=== PATIENT | male | born 1980 | race Caucasian/White ===

== ENCOUNTER 2019-06-20 03:48 | Emergency (ER) | payer BC ==
[~2019-06-20] VITALS: Ht 172.7 cm
[2019-06-20 04:29] LABS: ABSOLUTE EOSINOPHILS 0.1 thou/uL (0.0-0.7); ABSOLUTE LYMPHOCYTES 1.5 thou/uL (0.8-5.3); ABSOLUTE MONOCYTES 0.3 thou/uL (0.0-1.2); ABSOLUTE NEUTROPHILS 3.2 thou/uL (1.6-8.1); BASOPHILS 0.4 %; EOSINOPHILS 1.4 %; HEMATOCRIT 42.7 % (42.0-52.0); HEMOGLOBIN 15.2 gm/dL (14.0-18.0); LYMPHOCYTES 29.7 %; MCH 32.5 pg (26.0-34.0); MCHC 35.7 g/dL (28.0-37.0); MCV 91.1 fL (80.0-100.0); MONOCYTES 6.3 %; NUCLEATED RBCS 0 /100WBC; PLATELET COUNT* 159 thou/uL (150-400); POLYS 62.2 %; RBC 4.69 mil/uL (4.50-6.00); RDW-CV 13.3 % (10.5-14.5); WBC 5.1 thou/uL (4.0-11.0)
[2019-06-20 04:39] LABS: CALCIUM 7.9 mg/dL (8.5-10.1); CREATININE 1.1 mg/dL (0.6-1.3); POTASSIUM 3.9 mmol/L (3.5-5.1)
[2019-06-20 04:40] LABS: PROTIME 10.5 Seconds (9.20-11.50)
[2019-06-20 04:50] LABS: ALBUMIN 3.5 g/dL (3.4-5.0); TOTAL BILIRUBIN 0.4 mg/dL (<0.1-1.0)
[2019-06-20 06:24] LABS: URINE BILIRUBIN NEGATIVE (Negative); URINE BLOOD 3+ (Negative); URINE CLARITY CLEAR; URINE COLOR YELLOW; URINE GLUCOSE-RANDOM NEGATIVE (Negative); URINE KETONES NEGATIVE (Negative); URINE LEUKOCYTES-REFLEX NEGATIVE (Negative); URINE NITRITE-REFLEX NEGATIVE (Negative); URINE PROTEIN 1+ (Negative); URINE SPECIFIC GRAVITY 1.025 (1.005-1.030); URINE UROBILINOGEN 0.2 E.U./dl (0.2-1.0)
[2019-06-20 06:36] LABS: BACTERIA-REFLEX 1-9 Few /HPF (None Seen); CASTS None Seen /LPF (None Seen); CRYSTALS None Seen /LPF (None Seen); MUCUS 0-3 Light strn/LPF (None Seen); SQUAMOUS 0-3 Few /LPF (0-3); URINE WBC-REFLEX 0-5 Rare /HPF (0-5)
[2019-06-20 07:49] VITALS: BP 138/88
--- NOTE | 2019-06-22 13:56 | EKG ---
[place] [address] ELECTROCARDIOGRAM REPORT Name: KEVIN LIAO Room: [facility]#: [id number] Admission: 06/20/19 Attend Phys: Discharge: 06/20/19 Date of : 78 Date of Service: 06/20/19 0353 Report #: [id number] THIS REPORT FOR: cc: KAELA - No family physician/PCP FAM - No family physician/PCP Hakan Tim MD [facility] ~ THIS REPORT FOR: //name// [facility] ED Test Date: 2019-06-20 Test Time: 03:53:28 Pat Name: KEVIN LIAO Department: Room: Gender: M Physician Relations Representative: : 1980 Requested By: Sarah Espinal Order Number: [id number] Juventino MD: Hakan Tim Measurements Intervals [place] Rate: 82 P: 34 ND: 154 QRS: -4 QRSD: 103 T: 15 QT: 361 QTc: 422 Interpretive Statements Sinus rhythm Abnormal R-wave progression, early transition Baseline wander in lead(s) V6 No previous ECG available for comparison Electronically Signed On 06-20-2019 16:10:36 INSULATION MANAGER by Hakan Tim [email or web address] <ELECTRONICALLY SIGNED> By: Hakan Tim MD, FAC 06/20/19 1610 2 2 Hakan Tim MD, [facility] /EPI
--- NOTE | 2019-06-22 13:56 | EKG ---
[place] [address] ELECTROCARDIOGRAM REPORT Name: KEVIN LIAO Room: [facility]#: [id number] Admission: 06/20/19 Attend Phys: Discharge: 06/20/19 Date of : 78 Date of Service: 06/20/19 0640 Report #: [id number] THIS REPORT FOR: cc: FAM - No family physician/PCP FAM - No family physician/PCP Hakan Tim MD [facility] ~ THIS REPORT FOR: //name// [facility] ED Test Date: 2019-06-20 Test Time: 06:40:57 Pat Name: KEVIN LIAO Department: Room: Gender: M General Cargo Clerk: MARION : 1980 Requested By: Sarah Espinal Order Number: [id number] MD: Hakan Tim Measurements Intervals [place] Rate: 68 P: -1 UT: 151 QRS: 14 QRSD: 101 T: 6 QT: 375 QTc: 399 Interpretive Statements Sinus rhythm Abnormal R-wave progression, early transition No previous ECG available for comparison Electronically Signed On 06-20-2019 16:10:53 INFORMATION SYSTEMS AUDIT MANAGER by Hakan Tim [email or web address] <ELECTRONICALLY SIGNED> By: Hakan Tim MD, FACC 06/20/19 1610 9 9 Hakan Tim MD, FAC /EPI
== END 2019-06-20 07:50 | disposition still patient (30) ==
LOC: M.ERS 03:48
PROVIDERS: Emergency Medicine
DX: R07.89 Other chest pain (principal); R20.2 Paresthesia of skin

== ENCOUNTER 2020-08-11 10:56 | Emergency (ER) | payer OTHER ==
[~2020-08-11] VITALS: Ht 175.3 cm; Wt 114.9 kg
[2020-08-11 11:16] LABS: URINE BILIRUBIN NEGATIVE (Negative); URINE BLOOD 3+ (Negative); URINE CLARITY CLEAR; URINE COLOR YELLOW; URINE GLUCOSE-RANDOM NEGATIVE (Negative); URINE KETONES NEGATIVE (Negative); URINE LEUKOCYTES-REFLEX NEGATIVE (Negative); URINE NITRITE-REFLEX NEGATIVE (Negative); URINE PROTEIN 2+ (Negative); URINE SPECIFIC GRAVITY >= 1.030 (1.005-1.030); URINE UROBILINOGEN 0.2 E.U./dl (0.2-1.0)
[2020-08-11 11:24] LABS: URINE RBC >20 Many /HPF (0-2)
[2020-08-11 11:25] LABS: HEMATOCRIT 46.2 % (42.0-52.0); MCH 31.7 pg (26.0-34.0); MCHC 34.6 g/dL (28.0-37.0); MCV 91.7 fL (80.0-100.0); MPV 7.7 fl. (7.2-11.1); RBC 5.04 mil/uL (4.50-6.00); RDW-CV 13.7 % (10.5-14.5); WBC 5.6 thou/uL (4.0-11.0)
[2020-08-11 11:29] LABS: BACTERIA-REFLEX None Seen /HPF (None Seen)
[2020-08-11 11:30] LABS: CASTS None Seen /LPF (None Seen); SQUAMOUS 0-3 Few /LPF (0-3)
[2020-08-11 11:32] LABS: MUCUS 4-6 Moderate strn/LPF (None Seen)
[2020-08-11 11:35] LABS: CREATININE 1.3 mg/dL (0.6-1.3); POTASSIUM 4.3 mmol/L (3.5-5.1)
[2020-08-11 11:36] LABS: CRYSTALS None Seen /LPF (None Seen)
[2020-08-11 11:39] LABS: ALBUMIN 3.8 g/dL (3.4-5.0); TOTAL BILIRUBIN 0.8 mg/dL (<0.1-1.0); TOTAL PROTEIN 7.8 g/dL (6.4-8.2)
[2020-08-11] MEDS ORDERED: IBUPROFEN 800800 M1 PO (14:20)
[2020-08-11] MEDS ORDERED: HYDROCODON-ACE1 EAC7 PO (14:20)
[2020-08-11 14:34] VITALS: BP 124/87
== END 2020-08-11 14:36 | disposition home or self-care (01) ==
LOC: M.ERS 10:56
PROVIDERS: Emergency Medicine Emergency Medical Services
DX: N23 Unspecified renal colic (principal)

== ENCOUNTER 2020-09-07 15:49 | Emergency (ER) | payer OTHER ==
[~2020-09-07] VITALS: Ht 175.3 cm; Wt 113.8 kg
[~2020-09-07 15:49] MED LIST: HYDROCODON-ACE1 EAC7 PO; IBUPROFEN 800800 M1 PO
[2020-09-07] MEDS ORDERED: HYDROCODON-ACE1 EAC7 PO (17:15)
[2020-09-07 17:24] VITALS: BP 146/96
== END 2020-09-07 17:38 | disposition home or self-care (01) ==
LOC: M.ERS 15:49
DX: S50.01XA Contusion of right elbow, initial encounter (principal); W23.0XXA Caught, crushed, jammed, or pinched between moving objects, initial encounter; Y93.89 Activity, other specified; Y92.89 Other specified places as the place of occurrence of the external cause; Y99.8 Other external cause status

== ENCOUNTER → 2020-10-19 | Outpatient (CLI) | payer OTHER | LOC: M.ULTRA 15:09 | PROVIDERS: ATTEND Urology | DX: N13.30 Unspecified hydronephrosis (principal); N20.0 Calculus of kidney ==

== ENCOUNTER 2020-11-21 15:41 | Emergency (ER) | payer OTHER ==
[~2020-11-21] VITALS: Ht 172.7 cm; Wt 119.3 kg
[2020-11-21] MEDS ORDERED: ZOFRAN ODT4 MG DISSOLVE (17:52)
[2020-11-21 18:25] LABS: HEMATOCRIT 45.3 % (42.0-52.0); MCH 32.2 pg (26.0-34.0); MCHC 35.2 g/dL (28.0-37.0); MCV 91.4 fL (80.0-100.0); MPV 7.7 fl. (7.2-11.1); RBC 4.96 mil/uL (4.50-6.00); RDW-CV 13.4 % (10.5-14.5); WBC 4.1 thou/uL (4.0-11.0)
[2020-11-21 18:38] LABS: CALCIUM 8.3 mg/dL (8.5-10.1); CREATININE 1.3 mg/dL (0.6-1.3)
[2020-11-21 19:05] VITALS: BP 134/96
== END 2020-11-21 19:05 | disposition home or self-care (01) ==
LOC: M.ERS 15:41
PROVIDERS: Emergency Medicine Emergency Medical Services
DX: U07.1 COVID-19 (principal); Z87.442 Personal history of urinary calculi